=== PATIENT | male | born 1970 | race Caucasian/White ===

== ENCOUNTER 2018-11-03 10:44 | Emergency (ER) | payer MEDICARE, OTHER ==
[~2018-11-03] VITALS: Ht 175.3 cm; Wt 86.4 kg
[2018-11-03 10:48] VITALS: Ht 175.3 cm; Wt 86.4 kg
[2018-11-03] MEDS ORDERED: OLANZAPINE 5 MG TAB PO ONE (16:00)
[2018-11-03] MEDS ORDERED: LORAZEPAM 1 MG TAB PO ONE (16:00)
[2018-11-03] MEDS ORDERED: RISPERIDONE 1 MG TAB PO SCH (21:00)
[2018-11-03] MEDS ORDERED: MIRTAZAPINE 15 MG TAB PO SCH (21:00)
[2018-11-03] MEDS ORDERED: CEPHALEXIN 500 MG CAP PO SCH (21:00)
[2018-11-04 00:36] VITALS: BP 120/90; PULSE 71; RESP 16
== END 2018-11-04 00:37 ==
LOC: E/R 10:44
DX: F32.3 Major depressive disorder, single episode, severe with psychotic features (principal); N30.01 Acute cystitis with hematuria; Z86.59 Personal history of other mental and behavioral disorders; Z91.19 Patient's noncompliance with other medical treatment and regimen
CPT/HCPCS: 80053; 80307; 81001; 85025; 99285